=== PATIENT | male | born 1950 | race Caucasian/White ===

== ENCOUNTER → 2017-01-19 | Outpatient (CLI) | payer MEDICARE ==
[~2017-01-19] MED LIST: ALLOPURINOL300 MG PO; AMOXICILLIN 25250 M2 PO; AMOXICOT500 MG PO; ASPIRIN EC81 MG PO; CARDURA8 MG PO; CYCLOBENZAPRINE10 MG PO; DICLOFENAC 50MG50 MG PO; FINASTERIDE5 MG PO; GABAPENTIN100 M1 PO; HYDROCODONE1 TABLET PO; IMDUR 30MG. TAB30 MG PO; LASIX 40MG. TAB40 MG PO; LEVAQUIN500 MG PO; LOSARTAN POTAS100 MG PO; NABUMETONE500 M1 PO; VITAMIN D31000 I1 PO; [UNRECOGNIZED DRUG - OTHER] PO
--- NOTE | 2017-01-21 07:04 | RADIOLOGY REPORT PS360 ---
CT ABD PELVIS W/O CONTRAST CLINICAL INDICATION: Right lower quadrant pain ABDOMINAL PAIN ORDERING PHYSICIAN: MOISE HIADLGO PATIENT AGE: 66 years COMPARISON: 05/08/2015 TECHNIQUE: Axial images obtained with sagittal and coronal reformats. PROCEDURE: Oral Contrast: None IV Contrast: None . FINDINGS: There are mild atelectatic or fibrotic changes in the lung bases. There is minimal pericardial thickening anteriorly. The liver, gallbladder, spleen, adrenal glands, and pancreas have an unremarkable unenhanced CT appearance. No renal calculi or hydronephrosis. There is minimal prominence of the renal pelves bilaterally. This is nonspecific and could be related to patient's hydration status. Unremarkable appearing urinary bladder Unremarkable appendix. There is sigmoid diverticulosis but no evidence of diverticulitis. No intestinal obstruction or free air. No focal inflammatory change apparent. The terminal ileum has an unremarkable appearance. Para no pelvic mass or abnormal fluid collection prostate calcifications are present. No abdominal wall hernia evident Mild degenerative disc disease in the lumbar spine IMPRESSION: 1. No acute intra-abdominal or pelvic pathology. 2. Sigmoid diverticulosis without diverticulitis. 3. Unremarkable appendix
== END ==
LOC: RAD 10:22
DX: R10.31 Right lower quadrant pain (principal)

== ENCOUNTER → 2017-02-03 | Outpatient (CLI) | payer MEDICARE ==
[2017-02-03 13:47] LABS: LYMPH # 2.5 K/mm3 (0.7-4.5); LYMPH % 42.5 % (10-50)
[2017-02-03 13:59] LABS: HEMOGLOBIN 12.9 g/dL (14.1-18.0)
[2017-02-03 14:11] LABS: BUN 10 mg/dL (7-18)
[2017-02-03 14:16] LABS: GFR (ESTIMATED) 74 ML/MIN (>60)
== END ==
LOC: LAB 13:15
PROVIDERS: Nurse Practitioner Family
DX: R17 Unspecified jaundice (principal)